=== PATIENT | male | born 1970 | race Two or more races ===

== ENCOUNTER 2018-07-04 22:52 | Emergency (ER) | payer BC ==
[~2018-07-04] VITALS: Ht 172.7 cm; Wt 72.6 kg
[2018-07-04] MEDS ORDERED: FORTAMET500 MG (23:13)
[2018-07-05] MEDS ORDERED: ZOFRAN ODT4 MG SL (06:01)
[2018-07-05] MEDS ORDERED: PEPCID AC20 MG PO (06:01)
== END 2018-07-05 06:07 | disposition home or self-care (01) ==
LOC: ER 22:52
DX: R06.02 Shortness of breath (principal); F10.129 Alcohol abuse with intoxication, unspecified; E86.0 Dehydration

== ENCOUNTER 2018-07-12 18:23 | Emergency (ER) | payer BC ==
[~2018-07-12] VITALS: Ht 170.2 cm; Wt 72.6 kg
[~2018-07-12 18:23] MED LIST: FORTAMET500 MG; PEPCID AC20 MG PO; ZOFRAN ODT4 MG SL
== END 2018-07-13 11:23 | disposition home or self-care (01) ==
LOC: ER 18:23
DX: F10.229 Alcohol dependence with intoxication, unspecified (principal)